=== PATIENT | female | born 1985 | race African-American/Black ===

== ENCOUNTER 2016-07-27 14:33 | Outpatient (CLI) | payer SELFPAY ==
[~2016-07-27] VITALS: Ht 160 cm; Wt 77.9 kg
[2016-07-27 14:56] VITALS: Ht 160 cm; Wt 77.9 kg
--- NOTE | 2016-07-27 16:20 | RADRPT ---
PROCEDURE: US OB. CLINICAL INDICATION: Size and dates , labor TECHNIQUE: Multiple sonographic images of the pelvis and gravid uterus were obtained. The images were reviewed on a PACS workstation. COMPARISON: No prior studies are available for comparison. FINDINGS: There is a single viable intrauterine gestation. Cardiac activity is present with 139 beats per min [place]. There is a breech presentation. The placenta is anterior. There is no evidence for an abruption or placenta previa. Measurements were made in order to determine age. The results are as follows: BPD =7.4 cm HC =27.9 cm AC =24.1 cm FL =5.6 cm Estimated gestational age of approximately 29 weeks and 4 days based on ultrasound measurements. Clinical age: 29 weeks and 1 day. The estimated date of delivery is 10/08/16, based on ultrasound measurements. The EFW = 1311 g, 30.2%, based on LMP age. RPTAT: AA IMPRESSION: Single viable intrauterine gestation of approximately 29 weeks and 4 days based on ultrasound measu rements. .Cooper Powell MD, Date Time Electronically viewed and signed by .Cooper Powell MD, MD on 07/27/2016 16:19 .S/
--- NOTE | 2016-07-27 16:38 | RADRPT ---
PROCEDURE: US OB biophysical profile. Ultrasound cervix CLINICAL INDICATION: decreased movements, PTL TECHNIQUE: Multiple sonographic images of the pelvis were obtained. The images were reviewed on a PACS workstation. In addition, transvaginal images of the cervix were obtained. COMPARISON: No prior studies are available for comparison. FINDINGS: The cervix is closed and measures 4.5 cm in length. There is a single viable intrauterine gestation. Cardiac activity is present with 140 beats per min [place]. There is a breech presentation. The placenta is anterior. There is no evidence of placental abruption. There is a normal amount of amniotic fluid with an MATHEW = 13.1 cm. Biophysical profile: movement 2/2 tone 2/2. breathing 2/2 MATHEW 2/2 Total 02/02 RPTAT: AA . IMPRESSION: Normal biophysical profile. Cervix is closed and measures 4.5 cm in length. . .Cooper Powell MD, Date Time Electronically viewed and signed by .Cooper Powell MD, MD on 07/27/2016 16:38 .S/
--- NOTE | 2016-07-27 17:36 | QN ---
Documentation Comment 30 y/o female at 29 weeks sent in to R/O labor Cx: closed length: 4.5 cm EFW 1311 gm on EFM no UC seen will follow as out patient NAVI OSWALD MD Jul 27, 2016 17:36
== END 2016-07-27 17:46 | disposition home or self-care (01) ==
LOC: OBT 14:33 → L-D 14:34 → OBT 17:46
PROVIDERS: ATTEND Obstetrics & Gynecology
DX: O60.03 Preterm labor without delivery, third trimester (principal); O36.8130 Decreased fetal movements, third trimester, not applicable or unspecified; Z3A.29 29 weeks gestation of pregnancy
CPT/HCPCS: 76815; 76817; 76818; G0463